=== PATIENT | female | born 2000 | race Caucasian/White ===

== ENCOUNTER 2021-07-02 10:17 | Inpatient (IN) ==
[2021-07-02] MEDS ORDERED: Ondansetron 4 MG/2 ML VIAL IVP PRN (10:27)
[2021-07-02] MEDS ORDERED: Naloxone 0.4 MG/ML INJ IVP PRN (10:27)
[2021-07-02] MEDS ORDERED: Lidocaine 1% 20 ML MDV INFILT PRN (10:27)
[2021-07-02] MEDS ORDERED: Famotidine 20 MG/2 ML VIAL IVP PRN (10:27)
[2021-07-02] MEDS ORDERED: Azithromycin 500 MG in 0.9 % Sodium Chloride 250 ML IVPB PRN (10:27)
[2021-07-02] MEDS ORDERED: Metoclopramide 10 MG/2 ML VIAL IVP PRN (10:27)
[2021-07-02] MEDS ORDERED: *HR* Nalbuphine 10 MG/ML AMPUL IV PRN (10:27)
[2021-07-02 11:43] LABS: Basophils % 0.4 %; Eosinophils % 0.4 %; Hematocrit 34.3 % (35.3-44.9); Hemoglobin 11.1 g/dL (11.5-15.4); Immature Granulocytes % 1.2 % (0-4); Lymphocytes # 2.1 K/mcL (0.6-4.6); Lymphocytes % 22.1 %; Mean Corpuscular HGB Conc 32.4 g/dL (31.6-35.5); Mean Corpuscular Hemoglobin 26.2 pg (28.0-33.3); Mean Corpuscular Volume 81.1 fL (83.0-100.0); Mean Platelet Volume 9.9 fL (9.4-12.4); Monocytes # 0.8 K/mcL (0.0-1.3); Monocytes % 8.2 %; Neutrophils # 6.5 K/mcL (1.6-8.9); Platelet Count 231 K/mcL (140-400); Red Blood Count 4.23 M/mcL (3.82-4.97); Red Cell Distribution Width 14.5 % (11.5-14.5); Segmented Neutrophils % 67.7 %; White Blood Count 9.6 K/mcL (4.3-11.1)
[2021-07-02] MEDS: Ringers Solution, Lactated 1,000 ML IVC SCH ×2 (11:45→20:24)
[2021-07-02] MEDS: Oxytocin 30 UNIT/503 ML BAG IVC SCH (11:45)
[2021-07-02 12:14] LABS: Amphetamine Screen,Urine Negative ng/mL (Cutoff=1000); Barbiturate Screen,Urine Negative ng/mL (Cutoff=200); Benzodiazepines Screen,Urine Negative ng/mL (Cutoff=200); Cannabinoid Screen,Urine Negative ng/mL (Cutoff = 50); Cocaine Screen,Urine Negative ng/mL (Cutoff= 300); Opiate Screen,Urine Negative ng/mL (Cutoff=300); Phencyclidine Screen,Urine Negative ng/mL (Cutoff=25)
[2021-07-02 14:00] LABS: Influenza A PCR Negative (Negative); Influenza B PCR Negative (Negative); Resp. Syncytial Virus PCR Negative (Negative)
[2021-07-02 14:01] LABS: SARS-CoV-2 by PCR (In House) Negative (Negative)
[2021-07-03] MEDS: Ringers Solution, Lactated 1,000 ML IVC SCH (04:33)
[2021-07-03] MEDS ORDERED: EPHEDrine 50 MG/ML VIAL IVP PRN (07:26)
[2021-07-03] MEDS ORDERED: Epidural Premix (fent/bupiv) 110 ML EP SCH (07:30)
[2021-07-03] MEDS: Oxytocin 30 UNIT/503 ML BAG IVC SCH (10:35)
[2021-07-04] MEDS: Oxytocin 30 UNIT/503 ML BAG IVC SCH (00:19)
[2021-07-04] MEDS ORDERED: Oxytocin 30 UNIT/503 ML BAG IVC SCH (02:41)
[2021-07-04] MEDS ORDERED: Lanolin 7 G OINT...G. TP PRN (02:41)
[2021-07-04] MEDS ORDERED: Ondansetron ODT 4 MG TAB.RAPDIS SL PRN (02:41)
[2021-07-04] MEDS: Benzocaine/Menthol 56 GM AEROSOL SPRAY TP PRN ×2 (02:56→08:58)
[2021-07-04] MEDS: Ibuprofen 600 MG TABLET PO SCH ×3 (02:56→17:54)
[2021-07-04] MEDS: Acetaminophen 325 MG TABLET PO SCH ×3 (02:56→17:54)
[2021-07-04 04:05] LABS: Basophils % 0.1 %; Eosinophils % 0.1 %; Hematocrit 26.9 % (35.3-44.9); Immature Granulocytes % 0.8 % (0-4); Lymphocytes # 2.4 K/mcL (0.6-4.6); Lymphocytes % 13.2 %; Mean Corpuscular HGB Conc 33.1 g/dL (31.6-35.5); Mean Corpuscular Hemoglobin 26.1 pg (28.0-33.3); Mean Corpuscular Volume 78.9 fL (83.0-100.0); Mean Platelet Volume 10.1 fL (9.4-12.4); Monocytes # 1.6 K/mcL (0.0-1.3); Monocytes % 8.6 %; Platelet Count 206 K/mcL (140-400); Red Blood Count 3.41 M/mcL (3.82-4.97); Red Cell Distribution Width 14.3 % (11.5-14.5); Segmented Neutrophils % 77.2 %
[2021-07-04 04:07] LABS: Hemoglobin 8.9 g/dL (11.5-15.4); White Blood Count 18.1 K/mcL (4.3-11.1)
[2021-07-04] MEDS ORDERED: Prenatal Vit/FA 1 EACH TABLET PO SCH (09:00)
[2021-07-04] MEDS ORDERED: NON-FORMULARY MEDICATION 1 EACH EACH (Prenatal Caplet 1 TAB) PO SCH (09:00)
[2021-07-04 09:01] VITALS: O2SAT 99
[2021-07-04 21:56] VITALS: BP 110/74; PULSE 90; TEMP 98.4
== END 2021-07-04 22:00 | disposition home or self-care (01) | DRG 540 ==
LOC: 1NENULAB 10:17 → 1NENUOBS 07-03 23:09
PROVIDERS: ADMIT Obstetrics & Gynecology; ATTEND Obstetrics & Gynecology